=== PATIENT | male | born 1950 | race Caucasian/White ===

== ENCOUNTER 2024-01-06 08:25 | Day surgery (SDC) | payer OTHER, SELFPAY ==
[2024-01-06] VITALS (12 sets, daily range): BP systolic 114–144; BP diastolic 75–95; BMI 34.2
[2024-01-06] MEDS: LOW STRENGTH ASPIRIN 81 MG PO (09:32)
[2024-01-06] MEDS: NSS 297 ML IV (09:42)
[2024-01-06 09:52] LABS: Glucose - Point of Care 176 mg/dl (70-99)
--- NOTE | 2024-01-06 11:21 | ITS.CL.CATH ---
Credit Interviewer - Catheterization
Cardiac Catheterization
Procedure Report:
LEFT HEART CATHETERIZATION
Date of Procedure: November 07, 2023
Procedures performed:
1: Coronary angiography
2: Left ventricular hemodynamic assessment
Primary Care Physician: Dr. Jerardo Pichardo
Primary Water Team Leader: Dr. Rock Allred
INDICATION: The patient is a 73-year-old man with a past medical history of LAD stenting who is referred for a new cardiomyopathy in the setting of a left bundle branch block.
ACCESS: The patient was prepped and draped in usual sterile fashion. A 5 Dutch sheath was placed in the right radial artery using the Seldinger over the wire technique.
HEMODYNAMIC FINDINGS (mmHg):
LV(s/d,EDP): 156/13, 17
Ao(s/d,m): 156/90, 115
ANGIOGRAPHIC FINDINGS:
Single-plane Left Ventriculography in [facility] Projection: Not done. See recent echo.
Coronary Angiography:
Dominance: Right
Left Main: Normal
Left Anterior Descending: The left anterior descending artery is a medium caliber vessel that gives rise to 2 major diagonal branches. The previously placed long proximal and mid LAD stent is widely patent with no significant in-stent restenosis.
There is severe very distal apical small vessel LAD disease noted. The diagonal branches are also widely patent with normal flow.
Left Circumflex: The left circumflex is a very large nondominant system that gives rise to a huge branching obtuse marginal branch that is widely patent with only mild luminal irregularities.
Right Coronary: The right coronary artery is a medium caliber dominant vessel that gives rise to a small to medium caliber posterior descending artery. There are mild luminal irregularities with at worst a smooth 30% mid RCA stenosis in the AV
groove. All distal vessels have normal flow.
Fluoroscopy Time (min): 4.0
Radiation Dose (mGy): 496
DAP (Gy.cm2): 32
Closure device: None. A TR band was applied for hemostasis at the right wrist.
Complications: None.
ASSESSMENT:
1: Widely patent previously placed proximal/mid LAD stent with very distal apical small vessel disease. I suspect this is mostly a nonischemic cardiomyopathy in the setting of poorly controlled systemic hypertension and development of a left bundle
branch block.
2: Well compensated left ventricular filling pressures.
CONCLUSIONS and RECOMMENDATIONS:
1: Medical therapy for coronary artery disease and LV systolic dysfunction with close clinical follow-up as scheduled. If remains with symptoms and LV dysfunction on optimal goal-directed medical therapy, would consider cardiac resynchronization
therapy.
Sheron Marin M.D.
Copy to: Dr. Jerardo Pichardo
[2024-01-06] MEDS: NSS 1000 IV (11:30)
[2024-01-06 11:33] LABS: Glucose - Point of Care 149 mg/dl (70-99)
== END 2024-01-06 14:00 | disposition home or self-care (01) ==
LOC: CATH 08:25
PROVIDERS: ATTENDING PHYSICIAN Internal Medicine Interventional Cardiology; FAMILY PHYSICIAN Family Medicine; OTHER PHYSICIAN Internal Medicine
DX: I25.10 Atherosclerotic heart disease of native coronary artery without angina pectoris (principal); I44.7 Left bundle-branch block, unspecified; I42.9 Cardiomyopathy, unspecified; Z95.5 Presence of coronary angioplasty implant and graft; I10 Essential (primary) hypertension
CPT/HCPCS: 82962; 93458; C1894; Q9967